=== PATIENT | female | born 1975 | race Caucasian/White ===

== ENCOUNTER → 2019-03-11 | Outpatient (CLI) | payer MEDICARE ==
[2015-04-23 04:47] VITALS: BP 130/70
[~2019-03-11] MED LIST: ACYC-63 PO; GABA-585 PO; LEVO750T31 PO; MELO15TA23 PO; METR-34 PO; POTA20TA4 PO
--- NOTE | 2019-03-11 15:01 | RAD ---
DATE: 03/11/2019 EXAM: MAMMO CARLO DIAEvita BILAT HISTORY: Bilateral breast pain. No palpable abnormality. A sister was diagnosed with breast cancer at the age of 40 years. COMPARISON: None This study was interpreted with the benefit of Computerized Aided Detection (CAD). Breast Density: SCATTERED The breast parenchyma shows scattered fibroglandular densities. Breast parenchyma level B. FINDINGS: No mass, distortion, or suspicious calcification grouping. IMPRESSION: No suspicious finding. The patient does report having a sister with the diagnosis of breast cancer at age of 40 years. Lifetime risk of this patient developing breast cancer is 19.1% according to the [employer] [place] breast cancer risk assessment tool. It is possible that the patient may have a lifetime risk of 20% or greater by other methods of calculation. Screening breast MRI on an annual basis is recommended for patients with a 20% or greater lifetime risk of developing breast cancer. BI-RADS CATEGORY: 1 NEGATIVE RECOMMENDED FOLLOW-UP: 12M 12 MONTH FOLLOW-UP PQRS compliance statement: Patient information was entered into a reminder system with a target due date in one year for the next mammogram. Mammography is a sensitive method for finding small breast cancers, but it does not detect them all and is not a substitute for careful clinical examination. A negative mammogram does not negate a clinically suspicious finding and should not result in delay in biopsying a clinically suspicious abnormality. "Our facility is accredited by the [employer] Mammography Program."
--- NOTE | 2019-03-11 16:40 | RAD ---
Pelvic ultrasound HISTORY: Excessive and frequent menstruation Transabdominal ultrasound findings: Uterus measures 11.1 x 4.3 x 5.7 cm. Endometrial stripe measures 6 mm. Left ovary measures 3.3 cm with intact blood supply. Right ovary measures 3.6 cm with intact blood supply. Endovaginal scan: Uterus measures 10.9 x 5.2 x 6.9 cm. Endometrial stripe measures 1 cm. Right ovary measures 3.5 cm long axis with intact blood supply. Left ovary measures 3.4 cm long axis. No significant free fluid is seen. Nabothian cysts are noted. IMPRESSION: No significant sonographic abnormality. Electronically signed by: Janes Irving MD (03/11/2019 4:38 PM) [id number]
== END | disposition home or self-care (01) ==
LOC: US 13:35
PROVIDERS: ATTEND Family Medicine
DX: Z00.01 Encounter for general adult medical examination with abnormal findings (principal); N88.8 Other specified noninflammatory disorders of cervix uteri; N64.4 Mastodynia
CPT/HCPCS: 76830; 76856; 77066; G0279; 77062